=== PATIENT | female | born 1975 | race Caucasian/White ===

== ENCOUNTER → 2017-11-07 | Outpatient (CLI) | payer OTHER ==
[2015-01-01 10:30] VITALS: BMI 22.2
[~2017-11-07] MED LIST: BUPR-126 PO; CHOL500045 PO; INSU100V24 SQ; NOVOLOG SUBQ; VITA-131 PO
--- NOTE | 2017-11-07 15:34 | RADIOLOGY IMAGING REPORT ---
FACILITY: [facility] PATIENT NAME: Sherrell Monsivais : 1975 MR: [id number] V: [id number] EXAM DATE: ORDERING PHYSICIAN: KO WILLS TECHNOLOGIST: Location: [facility] - [place] Patient: Sherrell Monsivais : 1975 Visit/Account:[id number] Date of Sevice: 11/07/2017 Technique: CERVICAL SPINE MIN 4 VIEW HISTORY: Neck pain and left arm pain Comparison studies: None FINDINGS: There is no acute fracture. Straightening of the normal cervical lordosis is noted. There i s 2 mm anterolisthesis of C3 on C4, 2 mm anterolisthesis of C4 on C5 and 2 mm anterolisthesis of C5 o n C6. The vertebral body heights are maintained. The neural foramen are unremarkable. No prevertebral soft tissue swelling. Imaged portions of the lung apices are clear. IMPRESSION: 1. Degenerative findings as described above. Report Dictated By: Felipe Bedoya DO at 11/07/2017 3:26 PM Report E-Signed By: Felipe Bedoya DO at 11/07/2017 3:28 PM WSN:[id number]
== END ==
LOC: RAD 14:46
PROVIDERS: ATTEND Chiropractor
DX: M43.12 Spondylolisthesis, cervical region (principal)
CPT/HCPCS: 72050

== ENCOUNTER 2019-01-15 14:46 | Outpatient (RCR) | payer OTHER ==
[2015-01-01 10:30] VITALS: Ht 162.6 cm; Wt 86.2 kg
[~2019-01-15] VITALS: Ht 162.6 cm; Wt 86.2 kg
--- NOTE | 2019-01-15 16:32 | Medical Nutrition Therapy ---
Nutrition Anthropometrics Height (Inches): 64 Weight (Pounds): 190 BMI: 32.6 Markie Nutrition Score: Markie Nutrition Risk Score: Dietary Referral Nutrition Risk Factors: Nutrition Risk Comment: Nutritional Education Nutrition Education Topic: Diabetic Nutrition Learning Readiness: Interested Teaching Methods: Discussion, Handout, Demonstration Response to Teaching: Verbalize understanding Teaching Recipient: Patient Nutrition Counseling: Pt changing from Medtronic 530 insulin pump to 630 insulin pump. Reviewed differences between the 2 pumps. Reviewed status bar, basal, bolis, reservour and tubing change, alarms, hypo and hyperglycemia repcommenation, proper rotation site, linking meter. Encouraged pt to set up [employer] account. Pt will keep same insulin pump settings from 530 pump which are: Basel Pattern: 12:00 am- 6:00 am: 0.65 6:00am- 9:00 am: 0.85 9:00am- 12:00pm: 1.0 12:00pm- 2:00pm: 1.25 2:00pm- 6:00pm: 1.0 6:00pm- 2:00am 0.5 CHO ratio 1:10 Insulin Sensativity factor 70 Max Basal 2.0 Max bolis 10 Active insulin time: 3 hrs BG targets 100-130 Fill cannula: 0.3 Nutrition Monitoring & Eval RD Patient Assessment Time: 75 minutes Nutritional Comment: Provided 75 minutes diabetes education focusing on insulin pump set up. Copies To Copies to: KRISTIAN MCCORMICK ; IVAN DENG January 15, 2019 16:32
== END 2019-02-13 15:53 | disposition home or self-care (01) ==
LOC: DIET 14:46
PROVIDERS: ATTEND Nurse Practitioner Family
DX: Z46.81 Encounter for fitting and adjustment of insulin pump (principal); E10.9 Type 1 diabetes mellitus without complications